=== PATIENT | male | born 1960 | race Two or more races ===

== ENCOUNTER 2016-10-19 05:34 | Emergency (ER) | payer SELFPAY ==
[~2016-10-19] VITALS: Ht 165.1 cm; Wt 70.3 kg
--- NOTE | 2016-10-19 06:25 | PHYS DOC ---
Past Medical History Past Medical History: No Pertinent History Past Surgical History: No Surgical History Alcohol Use: Rarely Drug Use: None Adult General Chief Complaint Chief Complaint: LOWER BACK PAIN OR INJURY HPI HPI 56-year-old male with no prior history of chronic low back pain and complaining of one-week history of low back pain bilateral lumbar distribution. Patient states he does not know any specific injury. It was hurting him for several days and someone referred him to a masseuse. He received vigorous massage became more painful. And does not shoot down his legs. He has no incontinence or difficulty using his legs except limited by pain. Patient denies spinal pain he states the pain does radiate to his abdomen. No nausea vomiting diarrhea no fevers chills sweats or shaking chills. Reports normal bowel and bladder habits Review of Systems Review of Systems Constitutional: Denies fever or chills [] Eyes: Denies change in visual acuity, redness, or eye pain [] HENT: Denies nasal congestion or sore throat [] Respiratory: Denies cough or shortness of breath [] Cardiovascular: No additional information not addressed in HPI [] GI: Denies abdominal pain, nausea, vomiting, bloody stools or diarrhea [] : Denies dysuria or hematuria [] Musculoskeletal: Denies back pain or joint pain [] Integument: Denies rash or skin lesions [] Neurologic: Denies headache, focal weakness or sensory changes [] Endocrine: Denies polyuria or polydipsia [] Current Medications Current Medications Current Medications Medications (Trade) Dose Ordered Sig/Elinor Start Time Stop Time Status Last Admin Dose Admin Acetaminophen/ Hydrocodone Bitart (Lortab 5/325) 1 tab 1X ONCE 10/19/16 07:45 10/19/16 07:46 DC 10/19/16 07:35 1 TAB Info (Do NOT chart on this entry -- for MONITORING) 1 each PRN DAILY PRN 10/19/16 07:15 10/21/16 07:14 Iohexol (Omnipaque 300 Mg/ml) 75 ml 1X ONCE 10/19/16 07:15 10/19/16 07:16 DC 10/19/16 07:22 75 ML Ketorolac Tromethamine (Toradol Im) 30 mg 1X ONCE 10/19/16 06:30 10/19/16 06:31 DC 10/19/16 06:34 30 MG Orphenadrine Citrate (Norflex) 60 mg 1X ONCE 10/19/16 06:30 10/19/16 06:31 DC 10/19/16 06:34 60 MG Sodium Chloride 1,000 ml @ 100 mls/hr Q10H 10/19/16 06:30 10/19/16 16:29 10/19/16 06:24 100 MLS/HR Allergies Allergies Allergies Coded Allergies Type Severity Reaction Last Updated Verified No Known Drug Allergies 10/19/16 No Physical Exam Physical Exam Well-appearing 56-year-old male no acute distress at rest. Clear lungs regular rate and rhythm no focal abdominal tenderness bilateral lumbar paraspinal soft tissue tenderness no CVA tenderness. Negative straight leg raise bilateral however left low back pain is reproduced with lifting in the left leg in the supine position no saddle anesthesia neurovascularly intact bilateral lower extremity with normal and symmetrical reflexes Constitutional: Well developed, well nourished, no acute distress, non-toxic appearance. [] HENT: Normocephalic, atraumatic, bilateral external ears normal, oropharynx moist, no oral exudates, nose normal. [] Eyes: PERRLA, EOMI, conjunctiva normal, no discharge. [] Neck: Normal range of motion, no tenderness, supple, no stridor. [] Cardiovascular:Heart rate regular rhythm, no murmur [] Lungs & Thorax: Bilateral breath sounds clear to auscultation [] Abdomen: Bowel sounds normal, soft, no tenderness, no masses, no pulsatile masses. [] Skin: Warm, dry, no erythema, no rash. [] Back: As above no CVA tenderness. [] Extremities: No tenderness, no cyanosis, no clubbing, ROM intact, no edema. [] Neurologic: Alert and oriented X 3, normal motor function, normal sensory function, no focal deficits noted. [] Psychologic: Affect normal, judgement normal, mood normal. [] Current Patient Data Vital Signs Vital Signs Date Time Temp Pulse Resp B/P (MAP) Pulse Ox O2 Delivery O2 Flow Rate FiO2 10/19/16 07:55 82 141/71 (94) 97 Room Air 10/19/16 07:35 18 10/19/16 05:40 97.8 97.8 Lab Values Laboratory Tests Test 10/19/16 05:50 10/19/16 06:25 White Blood Count 12.0 x10^3/uL (4.0-11.0) H Red Blood Count 4.35 x10^6/uL (4.30-5.70) Hemoglobin 14.3 g/dL (13.0-17.5) Hematocrit 42.0 % (39.0-53.0) Mean Corpuscular Volume 97 fL (79-100) Mean Corpuscular Hemoglobin 33 pg (25-35) Mean Corpuscular Hemoglobin Concent 34 g/dL (31-37) Red Cell Distribution Width 13.4 % (11.5-14.5) Platelet Count 362 x10^3/uL (140-400) Neutrophils (%) (Auto) 89 % (31-73) H Lymphocytes (%) (Auto) 5 % (24-48) L Monocytes (%) (Auto) 5 % (0-9) Eosinophils (%) (Auto) 0 % (0-3) Basophils (%) (Auto) 0 % (0-3) Neutrophils # (Auto) 10.8 x10^3uL (1.8-7.7) H Lymphocytes # (Auto) 0.6 x10^3/uL (1.0-4.8) L Monocytes # (Auto) 0.6 x10^3/uL (0.0-1.1) Eosinophils # (Auto) 0.1 x10^3/uL (0.0-0.7) Basophils # (Auto) 0.0 x10^3/uL (0.0-0.2) Segmented Neutrophils % 79 % (35-66) H Band Neutrophils % 10 % (0-9) H Lymphocytes % 4 % (24-48) L Monocytes % 6 % (0-10) Metamyelocytes % 1 % (0-0) H Platelet Estimate Adequate (ADEQUATE) Sodium Level 138 mmol/L (136-145) Potassium Level 3.5 mmol/L (3.5-5.1) Chloride Level 101 mmol/L (98-107) Carbon Dioxide Level 31 mmol/L (21-32) Anion Gap 6 (6-14) Blood Urea Nitrogen 13 mg/dL (8-26) Creatinine 0.9 mg/dL (0.7-1.3) Estimated GFR (Cockcroft-Gault) 86.7 BUN/Creatinine Ratio 14 (6-20) Glucose Level 143 mg/dL (70-99) H Calcium Level 9.1 mg/dL (8.5-10.1) Total Bilirubin 1.0 mg/dL (0.2-1.0) Aspartate Amino Transferase (AST) 55 U/L (15-37) H Alanine Aminotransferase (ALT) 88 U/L (16-63) H Alkaline Phosphatase 129 U/L (46-116) H Total Protein 8.3 g/dL (6.4-8.2) H Albumin 3.5 g/dL (3.4-5.0) Albumin/Globulin Ratio 0.7 (1.0-1.7) L Lipase 218 U/L (73-393) Urine Collection Type Unknown Urine Color Yellow Urine Clarity Clear Urine pH 6.0 Urine Specific [place] 1.020 Urine Protein Negative mg/dL (NEG-TRACE) Urine Glucose (UA) Negative mg/dL (NEG) Urine Ketones (Stick) Negative mg/dL (NEG) Urine Blood Negative (NEG) Urine Nitrite Negative (NEG) Urine Bilirubin Negative (NEG) Urine Urobilinogen Dipstick 1.0 mg/dL (0.2 mg/dL) Urine Leukocyte Esterase Negative (NEG) Urine RBC 0 /HPF (0-2) Urine WBC 1-4 /HPF (0-4) Urine Squamous Epithelial Cells Few /LPF Urine Bacteria Few /HPF (0-FEW) Urine Mucus Marked /LPF Laboratory Tests 10/19/16 05:50 Laboratory Tests 10/19/16 05:50 EKG EKG [] Radiology/Procedures Radiology/Procedures [] Course & Med Decision Making Course & Med Decision Making Pertinent Labs and Imaging studies reviewed. (See chart for details) signs and symptoms consistent with musculoskeletal back pain in a patient with no chronic history of back problems or abdominal problems. Patient does not drink alcohol. He's had no gastrointestinal symptoms. Given patient states pain radiates to his abdomen will do abdominal workup with CT check labs hydrated given analgesia followed clinically and correlate results. If unremarkable anticipate outpatient follow-up patient's primary care doctor or clinic. He will take NSAIDs as well as Flexeril as a muscle relaxant. No further workup or treatment will be indicated and patient agrees with outpatient follow-up and strict return precautions will be given Dragon Disclaimer Dragon Disclaimer This electronic medical record was generated, in whole or in part, using a voice recognition dictation system. Departure Departure Impression: Primary Impression: Lumbar strain Additional Impressions: Back spasm Leukocytosis Elevated liver enzymes Diverticulosis Disposition: 01 HOME, SELF-CARE Condition: STABLE Referrals: NO PCP (PCP) Patient Instructions: Back Pain, Adult Additional Instructions: Your symptoms and findings suggest that you have low back strain with muscle spasm. Take ibuprofen 800 mg every 6 hours and use Flexeril 3 times a day as needed for spasm. Do warm soaks and gentle stretches. Avoid strenuous activity until her symptoms are resolved. Follow-up with your doctor to discuss the incidental findings today including diverticulosis, transaminases elevation, and mild leukocytosis with a white blood cell count 12.0. Follow-up with your doctor tomorrow and return immediately for new severe worsening symptoms Scripts Cyclobenzaprine Hcl (CYCLOBENZAPRINE HCL) 10 Mg Tablet 1 TAB PO QHS, #24 TAB Prov: DERICK DUPONT MD 10/19/16 Problem Qualifiers DERICK DUPONT MD Oct 19, 2016 06:25
[2016-10-19 06:27] LABS: BASO % 0 % (0-3); EOS % 0 % (0-3); HEMOGLOBIN 14.3 g/dL (13.0-17.5); LYMPH # 0.6 x10^3/uL (1.0-4.8); LYMPH % 5 % (24-48); MEAN CORPUSCULAR HEMOGLOBIN 33 pg (25-35); MEAN CORPUSCULAR HGB CONC 34 g/dL (31-37); MEAN CORPUSCULAR VOLUME 97 fL (79-100); MONO % 5 % (0-9); NEUT % 89 % (31-73); PLATELET COUNT 362 x10^3/uL (140-400); RED BLOOD COUNT 4.35 x10^6/uL (4.30-5.70); RED CELL DISTRIBUTION WIDTH 13.4 % (11.5-14.5)
[2016-10-19] MEDS ORDERED: IV NORMAL SALINE 1000ML BAG 1,000 ML IV SCH (06:30)
[2016-10-19] MEDS ORDERED: ORPHENADRINE CITRATE 60 MG/2 ML VIAL. IM ONE (06:30)
[2016-10-19] MEDS ORDERED: KETOROLAC TROMETHAMINE 60 MG/2 ML INJ. NAS ONE (06:30)
[2016-10-19 06:31] LABS: BILIRUBIN,URINE NEGATIVE (NEG); GLUCOSE,URINE NEGATIVE (NEG); NITRITE,URINE NEGATIVE (NEG); PROTEIN,URINE NEGATIVE (NEG-TRACE)
[2016-10-19 06:36] LABS: CALCIUM 9.1 mg/dL (8.5-10.1); CREATININE 0.9 mg/dL (0.7-1.3); GFR 86.7; POTASSIUM 3.5 mmol/L (3.5-5.1)
[2016-10-19 06:42] LABS: ALBUMIN 3.5 g/dL (3.4-5.0); ALBUMIN/GLOBULIN RATIO 0.7 (1.0-1.7); TOTAL PROTEIN 8.3 g/dL (6.4-8.2)
[2016-10-19 06:45] LABS: BACTERIA,URINE FEW /HPF (0-FEW); RBC,URINE 0 /HPF (0-2); SQUAMOUS EPITHELIAL CELL,UR FEW /LPF
[2016-10-19] MEDS ORDERED: IOHEXOL 300 MG/ML 75 ML VIAL IV ONE (07:15)
[2016-10-19] MEDS ORDERED: CONTRAST GIVEN MC PRN (07:15)
--- NOTE | 2016-10-19 07:41 | RAD ---
Exam performed: CT abdomen pelvis with IV contrast. History: Lower abdominal pain for one week. Date of service: 10/19/16. Comparison: None available Technique: Contiguous helical acquisitions are obtained through the abdomen and pelvis during intravenous administration of 75 cc of Omnipaque 300. Sagittal and coronal reformatted images are obtained and reviewed. Findings: The lung bases are essentially clear. Linear right basilar atelectasis. Dependent atelectasis in the left lung base. Visualized heart is normal The liver, gallbladder, spleen and pancreas appear normal. Both adrenal glands and bilateral kidneys are normal in size with symmetric excretion of contrast via both kidneys. There is no hydronephrosis or nephrolithiasis. Aorta is normal in caliber without aneurysm. The small bowel loops are nondilated and unremarkable. There is diffuse scattered stool in the colon. Visualized appendix is normal. Sigmoid diverticulosis without acute diverticulitis. The urinary bladder is partially decompressed. The prostate gland, seminal vesicles and the rectum appear normal. Interrogation of bone windows demonstrates no bony abnormalities. Spondylotic changes and multilevel mild disc space narrowing is seen. Impression: No acute intra-abdominal or pelvic process detected. Scattered stool throughout the colon. Correlate clinically for constipation. Sigmoid diverticulosis without acute diverticulitis. PQRS Compliance Statement: One or more of the following individualized dose reduction techniques were utilized for this examination: 1. Automated exposure control 2. Adjustment of the mA and/or kV according to patient size 3. Use of iterative reconstruction technique
[2016-10-19] MEDS ORDERED: HYDROcodone/APAP 5/325MG 1 TAB TABLET PO ONE (07:45)
[2016-10-19 07:55] VITALS: BP 141/71
[2016-10-19 08:27] LABS: PLT ESTIMATE ADEQUATE (ADEQUATE)
[2016-10-19] MEDS ORDERED: CYCL10TA2 PO (08:41)
== END 2016-10-19 08:50 | disposition home or self-care (01) ==
LOC: ER 05:34
DX: S39.012A Strain of muscle, fascia and tendon of lower back, initial encounter (principal); D72.829 Elevated white blood cell count, unspecified; R74.8 Abnormal levels of other serum enzymes; K57.30 Diverticulosis of large intestine without perforation or abscess without bleeding; G89.29 Other chronic pain; X58.XXXA Exposure to other specified factors, initial encounter; Y93.89 Activity, other specified; Y92.89 Other specified places as the place of occurrence of the external cause; Y99.8 Other external cause status
CPT/HCPCS: 36415; 74177; 80053; 81001; 83690; 85007; 85025; 96360; 96361; 96372; 99285; J1885; J2360; J7030; Q9967